=== PATIENT | male | born 1990 | race Caucasian/White ===

== ENCOUNTER 2017-02-16 20:33 | Emergency (ER) | payer BC ==
[~2017-02-16] VITALS: Ht 182.9 cm; Wt 100.0 kg
[2017-02-16 20:35] VITALS: BP 142/84; PULSE 83; TEMP 98.7
== END 2017-02-16 21:55 | disposition home or self-care (01) ==
LOC: COL.ER 20:33
DX: S93.402A Sprain of unspecified ligament of left ankle, initial encounter (principal); X50.1XXA Overexertion from prolonged static or awkward postures, initial encounter